=== PATIENT | female | born 1985 | race Caucasian/White ===

== ENCOUNTER 2020-01-17 22:22 | Observation (INO) | payer BC ==
[2020-01-17 23:43] LABS: Basophils # (A) 0.1 k/uL (0-0.2); Basophils % (A) 1 %; Eosinophils # (A) 0.2 k/uL (0-0.7); Eosinophils % (A) 2 %; HCT 36.1 % (34.0-46.0); Lymphocytes # (A) 2.8 k/uL (1.0-4.8); Lymphocytes % (A) 35 %; MCH 28.9 pg (25.0-35.0); MCHC 33.4 g/dL (31.0-37.0); MCV 86.6 fL (80.0-100.0); Mean Platelet Volume 11.8; Monocytes # (A) 0.5 k/uL (0-1.0); Monocytes % (A) 6 %; Neutrophils # (A) 4.3 k/uL (1.3-7.7); Neutrophils % (A) 54 %; Platelet Count 218 k/uL (150-450); RBC 4.17 m/uL (3.80-5.40); RDW 12.8 % (11.5-15.5)
[2020-01-17 23:51] LABS: ALT 18 U/L (4-34); AST 26 U/L (14-36); African American GFR (CKD) >90 (>60 ml/min/1.73 sqM); Albumin 5.1 g/dL (3.5-5.0); Alkaline Phosphatase 50 U/L (38-126); Anion Gap 12 mmol/L; Blood Urea Nitrogen 14 mg/dL (7-17); Calcium 9.9 mg/dL (8.4-10.2); Carbon Dioxide 25 mmol/L (22-30); Chloride 101 mmol/L (98-107); Glucose 98 mg/dL (74-99); Non-African American GFR(CKD) >90 (>60 ml/min/1.73 sqM); Potassium 3.8 mmol/L (3.5-5.1); Sodium 138 mmol/L (137-145); Total Bilirubin 0.5 mg/dL (0.2-1.3); Total Protein 8.4 g/dL (6.3-8.2)
[2020-01-17 23:56] LABS: Appearance,Urine Cloudy (Clear); Bacteria,Urine Many /hpf; Bilirubin,Urine Negative (Negative); Blood,Urine Large (Negative); Color,Urine Dark Red; Glucose,Urine (UA) Negative (Negative); Ketones,Urine Negative (Negative); Leukocyte Esterase,Urine Small (Negative); Nitrite,Urine Negative (Negative); PH, Urine 7.5 (5.0-8.0); Protein,Urine 3+ (Negative); RBC,Urine >182 /hpf (0-5); Specific Gravity,Urine 1.012 (1.001-1.035); Urobilinogen,Urine <2.0 mg/dL (<2.0); WBC,Urine 16 /hpf (0-5)
[2020-01-18] LABS: Prothrombin Time 10.4 sec (9.0-12.0)
[2020-01-18 00:07] LABS: HCG,Quantitative Serum 434.4 mIU/mL
--- NOTE | 2020-01-18 00:18 | ED ---
General Adult HPI - General Source: patient, family, RN notes reviewed Mode of arrival: ambulatory Limitations: no limitations <Zheng Forrester - Last Filed: 01/18/20 03:53> - History of Present Illness -: hour(s) (4) Location: pelvis (cramping), genitals (bleeding) Severity scale (1-10): 9 Consistency: constant Improves with: none Worsens with: none Associated Symptoms: diaphoresis, malaise, shortness of breath, weakness Treatments Prior to Arrival: none <Keegan Elliott - Last Filed: 01/18/20 04:25> - General Chief complaint: Vaginal Bleeding Stated complaint: Vaginal Bleeding Time Seen by Provider: 01/17/20 22:56 - History of Present Illness Initial comments: 34-year-old female presents to the emergency department for a chief complaint of vaginal bleeding. Patient states that she had an elective medical 5 weeks ago with mifepristone and misoprostol. Passed tissue shortly after. States that about 2 weeks ago she had intercourse had some light bleeding afterwards. Patient states that today she had intercourse around 8 AM and then around 3 PM she had vaginal bleeding. Patient states at first she was soaking through a pad an hour but then a couple hours ago she started to soak through 2 thin pads every hour. States she is passing clots. Denies abdominal pain. Denies lightheadedness but states she feels anxious.Patient has no other complaints at this time including shortness of breath, chest pain, abdominal pain, nausea or vomiting, headache, or visual changes. (Zheng Forrester) - Related Data Allergies Allergy/AdvReac Type Severity Reaction Status Date / Time No Known Allergies Allergy Verified 01/17/20 22:45 Review of Systems ROS Other: All systems not noted in ROS Statement are negative. <Zheng Forrestre - Last Filed: 01/18/20 03:53> ROS Other: All systems not noted in ROS Statement are negative. <Keegan Elliott - Last Filed: 01/18/20 04:25> ROS Statement: Those systems with pertinent positive or pertinent negative responses have been documented in the HPI. Past Medical History Past Medical History: No Reported History History of Any Multi-Drug Resistant Organisms: None Reported Past Surgical History: No Surgical Hx Reported Past Psychological History: No Psychological Hx Reported Smoking Status: Never smoker Past Alcohol Use History: None Reported Past Drug Use History: None Reported <UsamaZheng P - Last Filed: 01/18/20 03:53> General Exam Limitations: no limitations General appearance: alert, in no apparent distress Head exam: Present: atraumatic, normocephalic, normal inspection Eye exam: Present: normal appearance, PERRL, EOMI. Absent: scleral icterus, conjunctival injection, periorbital swelling ENT exam: Present: normal exam, mucous membranes moist Neck exam: Present: normal inspection. Absent: tenderness, meningismus, lymphadenopathy Respiratory exam: Present: normal lung sounds bilaterally. Absent: respiratory distress, wheezes, rales, rhonchi, stridor Cardiovascular Exam: Present: regular rate, normal rhythm, normal heart sounds. Absent: systolic murmur, diastolic murmur, rubs, gallop, clicks GI/Abdominal exam: Present: soft, normal bowel sounds. Absent: distended, tenderness (nontender abdomen), guarding, rebound, rigid External exam: Present: normal external exam. Absent: erythema, swelling, le sions, lacerations, ecchymosis, other Speculum exam: Present: vaginal bleeding (Moderate amount of vaginal bleeding noted. Appears to be coming from the right side of the vagina however difficult to visualize.). Absent: normal speculum exam, erythema, vaginal discharge, ce rvical discharge, foreign body Neurological exam: Present: alert, oriented X3 Skin exam: Present: warm, dry, intact, normal color. Absent: rash <Zheng Forrester P - Last Filed: 01/18/20 03:53> General appearance: alert, anxious, in distress, other (Patient becoming pale and tachycardic, diaphoretic) Head exam: Present: atraumatic, normocephalic, normal inspection Eye exam: Present: normal appearance, PERRL, EOMI. Absent: scleral icterus, conjunctival injection, periorbital swelling ENT exam: Present: normal exam, mucous membranes moist Neck exam: Present: normal inspection. Absent: tenderness, meningismus, lymphadenopathy Respiratory exam: Present: normal lung sounds bilaterally. Absent: respiratory distress, wheezes, rales, rhonchi, stridor Cardiovascular Exam: Present: normal rhythm, tachycardia, normal heart sounds. Absent: regular rate, systolic murmur, diastolic murmur, rubs, gallop, clicks GI/Abdominal exam: Present: soft, normal bowel sounds. Absent: distended, tenderness, guarding, rebound, rigid Extremities exam: Present: normal inspection, full ROM, normal capillary refill. Absent: tenderness, pedal edema, joint swelling, calf tenderness Back exam: Present: normal inspection Neurological exam: Present: alert, oriented X3, CN II-XII intact Psychiatric exam: Present: normal affect, normal mood Skin exam: Present: warm, dry, intact, normal color. Absent: rash <Keegan Elliott - Last Filed: 01/18/20 04:25> Course <Zheng Forrester - Last Filed: 01/18/20 03:53> <Keegan Elliott - Last Filed: 01/18/20 04:25> Vital Signs 01/17/20 01/18/20 01/18/20 22:37 01:25 01:42 Temperature 97.6 F Pulse Rate 120 H 40 L 86 Respiratory 20 26 H 24 Rate Blood Pressure 134/87 92/60 106/65 O2 Sat by Pulse 100 100 Oximetry 01/18/20 01/18/20 01/18/20 01:44 02:00 02:10 Temperature 97.4 F L 97.6 F 97.9 F Pulse Rate 87 83 Respiratory 18 18 Rate Blood Pressure 95/62 104/60 O2 Sat by Pulse 100 100 Oximetry - Reevaluation(s) Reevaluation #1: Dr. Elliott At bedside immediately after I saw the patient assisting with pelvic exam. (Zheng Forrester) Reevaluation #2: 01/18/20 02:03 Patient's blood pressure (Zheng Forrester) Reevaluation #3: Patient seen and evaluated here in the emergency department having persistent significant vaginal bleeding Unable to see cause her where bleeding is coming from patient concerned of some abdominal pain Patient's pelvis is packed with Kerlix to help stop bleeding Patient persistent bleeding throughout ER stay did have a significant bradycardic response to acute hemorrhage. This time she became unresponsive Patient improvement with her normal replacement and rapid IV fluid bolus decision made to transfuse patient Spoke with Dr. Chamberlain for second time to increased urgency of emergent surgery (Keegan Elliott) Medical Decision Making - Lab Data Result diagrams: 01/18/20 01:24 01/17/20 23:11 <Zheng Forrester - Last Filed: 01/18/20 03:53> - Lab Data Result diagrams: 01/18/20 01:24 01/17/20 23:11 <Keegan Elliott - Last Filed: 01/18/20 04:25> - Medical Decision Making Patient's initial vital signs: tachycardia of 120 however she was very anxious. After about 45 minutes heart rate was in the 80s and blood pressure stable. Vaginal exam was performed patient did have moderate bleeding on speculum inserted however this would stop her speculum removed. Bleeding look at it could possibly be coming from a laceration although it was difficult to visualize source. CBC CMP was obtained which was unremarkable. Hemoglobin stable at 12. HCG Quant however was found to be 434. Unknown if this is related to patient's . We spoke with MANAGER RN CASE about admitting patient given bleeding although controlled at this time. Patient stable at this time. Vagina was packed. However patient's blood pressure did drop to 92/60. Patient was given 2000 mL bolus with pressure bags. MANAGER RN CASE was called emergently again and OR was called in. Blood work was repeated and there was a delta of almost 4 points. Transfusion was given. Dr. Nicholas at bedside evaluating patient. Patient was taken to the OR. (Zheng Forrester) 34 female DF for evaluation of acute vaginal bleeding. Patient significant vaginal bleeding, in extremis from hemorrhagic shock. Patient taken to the operating room and transfused with blood pressure support (Keegan Elliott) - Lab Data Lab Results 01/17/20 01/17/20 01/17/20 Range/Units 23:00 23:02 23:11 WBC 8.0 (3.8-10.6) k/uL RBC 4.17 (3.80-5.40) m/uL Hgb 12.0 (11.4-16.0) gm/dL Hct 36.1 (34.0-46.0) % MCV 86.6 (80.0-100.0) fL MCH 28.9 (25.0-35.0) pg MCHC 33.4 (31.0-37.0) g/dL RDW 12.8 (11.5-15.5) % Plt Count 218 (150-450) k/uL Neutrophils % 54 % Lymphocytes % 35 % Monocytes % 6 % Eosinophils % 2 % Basophils % 1 % Neutrophils # 4.3 (1.3-7.7) k/uL Lymphocytes # 2.8 (1.0-4.8) k/uL Monocytes # 0.5 (0-1.0) k/uL Eosinophils # 0.2 (0-0.7) k/uL Basophils # 0.1 (0-0.2) k/uL Manual Slide Review Performed Large Platelets Present PT (9.0-12.0) sec INR (<1.2) APTT (22.0-30.0) sec VBG pH (7.31-7.41) VBG pCO2 (37-51) mmHg VBG HCO3 (24-28) mmol/L Sodium (137-145) mmol/L Potassium (3.5-5.1) mmol/L Chloride (98-107) mmol/L Carbon Dioxide (22-30) mmol/L Anion Gap mmol/L BUN (7-17) mg/dL Creatinine (0.52-1.04) mg/dL Est GFR (CKD-EPI)AfAm (>60 ml/min/1.73 sqM) Est GFR (CKD-EPI)NonAf (>60 ml/min/1.73 sqM) Glucose (74-99) mg/dL POC Glucose (mg/dL) (75-99) mg/dL POC Glu Instrumentation Controls Engineer ID Calcium (8.4-10.2) mg/dL Total Bilirubin (0.2-1.3) mg/dL AST (14-36) U/L ALT (4-34) U/L Alkaline Phosphatase (38-126) U/L Total Protein (6.3-8.2) g/dL Albumin (3.5-5.0) g/dL HCG, Quant mIU/mL Urine Color Urine Appearance (Clear) Urine pH (5.0-8.0) Ur Specific Reard[place] (1.001-1.035) Urine Protein (Negative) Urine Glucose (UA) (Negative) Urine Ketones (Negative) Urine Blood (Negative) Urine Nitrite (Negative) Urine Bilirubin (Negative) Urine Urobilinogen (<2.0) mg/dL Ur Leukocyte Esterase (Negative) Urine RBC (0-5) /hpf Urine WBC (0-5) /hpf Urine WBC Clumps (None) /hpf Urine Bacteria (None) /hpf Blood Type A Positive Blood Type Confirm A Positive Blood Type Recheck No Previous Record Bld Type Recheck Status CABO Indicated Antibody Screen NEGATIVE Crossmatch See Detail Spec Expiration Date 01/20/2020 - 231001/17/20 01/17/20 01/17/20 Range/Units 23:11 23:11 23:11 WBC (3.8-10.6) k/uL RBC (3.80-5.40) m/uL Hgb (11.4-16.0) gm/dL Hct (34.0-46.0) % MCV (80.0-100.0) fL MCH (25.0-35.0) pg MCHC (31.0-37.0) g/dL RDW (11.5-15.5) % Plt Count (150-450) k/uL Neutrophils % % Lymphocytes % % Monocytes % % Eosinophils % % Basophils % % Neutrophils # (1.3-7.7) k/uL Lymphocytes # (1.0-4.8) k/uL Monocytes # (0-1.0) k/uL Eosinophils # (0-0.7) k/uL Basophils # (0-0.2) k/uL Manual Slide Review Large Platelets PT 10.4 (9.0-12.0) sec INR 1.0 (<1.2) APTT 23.0 (22.0-30.0) sec VBG pH (7.31-7.41) VBG pCO2 (37-51) mmHg VBG HCO3 (24-28) mmol/L Sodium 138 (137-145) mmol/L Potassium 3.8 (3.5-5.1) mmol/L Chloride 101 (98-107) mmol/L Carbon Dioxide 25 (22-30) mmol/L Anion Gap 12 mmol/L BUN 14 (7-17) mg/dL Creatinine 0.67 (0.52-1.04) mg/dL Est GFR (CKD-EPI)AfAm >90 (>60 ml/min/1.73 sqM) Est GFR (CKD-EPI)NonAf >90 (>60 ml/min/1.73 sqM) Glucose 98 (74-99) mg/dL POC Glucose (mg/dL) (75-99) mg/dL POC Glu Instrumentation Controls Engineer ID Calcium 9.9 (8.4-10.2) mg/dL Total Bilirubin 0.5 (0.2-1.3) mg/dL AST 26 (14-36) U/L ALT 18 (4-34) U/L Alkaline Phosphatase 50 (38-126) U/L Total Protein 8.4 H (6.3-8.2) g/dL Albumin 5.1 H (3.5-5.0) g/dL HCG, Quant 434.4 mIU/mL Urine Color Dark Red Urine Appearance Cloudy H (Clear) Urine pH 7.5 (5.0-8.0) Ur Specific Reardan 1.012 (1.001-1.035) Urine Protein 3+ H (Negative) Urine Glucose (UA) Negative (Negative) Urine Ketones Negative (Negative) Urine Blood Large H (Negative) Urine Nitrite Negative (Negative) Urine Bilirubin Negative (Negative) Urine Urobilinogen <2.0 (<2.0) mg/dL Ur Leukocyte Esterase Small H (Negative) Urine RBC >182 H (0-5) /hpf Urine WBC 16 H (0-5) /hpf Urine WBC Clumps Many H (None) /hpf Urine Bacteria Many H (None) /hpf Blood Type Blood Type Confirm Blood Type Recheck Bld Type Recheck Status Antibody Screen Crossmatch Spec Expiration Date 01/18/20 01/18/20 01/18/20 Range/Units 01:23 01:24 01:24 WBC 9.8 (3.8-10.6) k/uL RBC 2.99 L (3.80-5.40) m/uL Hgb 8.3 L D (11.4-16.0) gm/dL Hct 25.4 L (34.0-46.0) % MCV 85.0 (80.0-100.0) fL MCH 27.9 (25.0-35.0) pg MCHC 32.8 (31.0-37.0) g/dL RDW 13.0 (11.5-15.5) % Plt Count 125 L (150-450) k/uL Neutrophils % 59 % Lymphocytes % 33 % Monocytes % 5 % Eosinophils % 1 % Basophils % 0 % Neutrophils # 5.7 (1.3-7.7) k/uL Lymphocytes # 3.2 (1.0-4.8) k/uL Monocytes # 0.5 (0-1.0) k/uL Eosinophils # 0.1 (0-0.7) k/uL Basophils # 0.0 (0-0.2) k/uL Manual Slide Review Large Platelets PT (9.0-12.0) sec INR (<1.2) APTT (22.0-30.0) sec VBG pH 7.44 H (7.31-7.41) VBG pCO2 30 L (37-51) mmHg VBG HCO3 20 L (24-28) mmol/L Sodium (137-145) mmol/L Potassium (3.5-5.1) mmol/L Chloride (98-107) mmol/L Carbon Dioxide (22-30) mmol/L Anion Gap mmol/L BUN (7-17) mg/dL Creatinine (0.52-1.04) mg/dL Est GFR (CKD-EPI)AfAm (>60 ml/min/1.73 sqM) Est GFR (CKD-EPI)NonAf (>60 ml/min/1.73 sqM) Glucose (74-99) mg/dL POC Glucose (mg/dL) 117 H (75-99) mg/dL POC Glu Instrumentation Controls Engineer ID Fetterly, Juliane Calcium (8.4-10.2) mg/dL Total Bilirubin (0.2-1.3) mg/dL AST (14-36) U/L ALT (4-34) U/L Alkaline Phosphatase (38-126) U/L Total Protein (6.3-8.2) g/dL Albumin (3.5-5.0) g/dL HCG, Quant mIU/mL Urine Color Urine Appearance (Clear) Urine pH (5.0-8.0) Ur Specific Reard[place] (1.001-1.035) Urine Protein (Negative) Urine Glucose (UA) (Negative) Urine Ketones (Negative) Urine Blood (Negative) Urine Nitrite (Negative) Urine Bilirubin (Negative) Urine Urobilinogen (<2.0) mg/dL Ur Leukocyte Esterase (Negative) Urine RBC (0-5) /hpf Urine WBC (0-5) /hpf Urine WBC Clumps (None) /hpf Urine Bacteria (None) /hpf Blood Type Blood Type Confirm Blood Type Recheck Bld Type Recheck Status Antibody Screen Crossmatch Spec Expiration Date Critical Care Time Critical Care Time: Yes <Zheng Forrester - Last Filed: 01/18/20 03:53> Critical Care Time: Yes Total Critical Care Time: 31 <Keegan Elliott - Last Filed: 01/18/20 04:25> Critical Care Time: 33 minutes of critical care time was utilized for management of this patient. Multiple evaluations were performed. Vaginal packing performed. Correcting of critical vitals. Consultation with surgeon. (Zheng Forrester) Disposition Time of Disposition: 03:50 <Zheng Forrester - Last Filed: 01/18/20 03:53> Is patient prescribed a controlled substance at d/c from ED?: No <Keegan Elliott - Last Filed: 01/18/20 04:25> Clinical Impression: Vaginal bleeding, Hemorrhagic shock, Anemia, Incomplete Disposition: ADMITTED IP TO THIS HOSP Condition: Critical
[2020-01-18 00:24] LABS: Large Platelets Present
--- NOTE | 2020-01-18 00:41 | US ---
EXAMINATION TYPE: US transvaginal DATE OF EXAM: 01/18/2020 COMPARISON: NONE CLINICAL HISTORY: pain. Patient took medication 5 weeks ago, heavy vaginal bleeding with maya ts today TECHNIQUE: Transvaginal (TV). Date of LMP: unknown EXAM MEASUREMENTS: Uterus: 8.6 x 4.6 x 4.9 cm Right Ovary: 2.3 x 1.3 x 1.6 cm Left Ovary: 3.3 x 2.0 x 2.3 cm 1. Uterus: Anteverted heterogeneous with increased vascularity body/OUSMANE 2. Endometrium: unable to visualize clearly due to heterogeneous myometrium 3. Right Ovary: appears wnl as visualized 4. Left Ovary: complex cystic area = 2.7 x 2.2 x 2.3cm Spectral, color and waveform doppler imaging shows good arterial and venous flow within the ovaries ; there is no evidence for ovarian torsion. 5. Bilateral Adnexa: appears wnl 6. Posterior cul-de-sac: wnl IMPRESSION: Normal uterus and endometrium. No evidence of ovarian torsion. Empty uterus. Complex cyst on the left ovary.
[2020-01-18 01:28] LABS: Glucose,Whole Blood 117 mg/dL (75-99)
[2020-01-18] MEDS ORDERED: SODIUM CHLORIDE 0.9% 2,000 ML IV ONE (01:30)
[2020-01-18 01:32] LABS: VBG PH 7.44 (7.31-7.41)
[2020-01-18 01:37] LABS: Basophils % (A) 0 %; Eosinophils # (A) 0.1 k/uL (0-0.7); Eosinophils % (A) 1 %; HCT 25.4 % (34.0-46.0); Lymphocytes # (A) 3.2 k/uL (1.0-4.8); Lymphocytes % (A) 33 %; MCH 27.9 pg (25.0-35.0); MCHC 32.8 g/dL (31.0-37.0); Mean Platelet Volume 12.1; Monocytes # (A) 0.5 k/uL (0-1.0); Monocytes % (A) 5 %; Neutrophils # (A) 5.7 k/uL (1.3-7.7); Neutrophils % (A) 59 %; Platelet Count 125 k/uL (150-450); RBC 2.99 m/uL (3.80-5.40); WBC 9.8 k/uL (3.8-10.6)
[2020-01-18 01:38] LABS: HGB 8.3 gm/dL (11.4-16.0)
[2020-01-18] MEDS ORDERED: NALOXONE 0.4 MG/ML 1 ML VIAL IV PRN (02:35)
[2020-01-18] MEDS ORDERED: METHYLERGONOVINE 0.2 MG/ML 1 ML AMP ONE (02:38)
[2020-01-18] MEDS ORDERED: PROPOFOL 10 MG/ML 20 ML VIAL IV ONE (02:38)
[2020-01-18] MEDS ORDERED: MIDAZOLAM 2 MG/2 ML VIAL ONE (02:38)
[2020-01-18] MEDS ORDERED: KETOROLAC 30 MG/ML 1 ML VIAL ONE (02:38)
[2020-01-18] MEDS ORDERED: ONDANSETRON 4 MG/2 ML VIAL ONE (02:38)
[2020-01-18] MEDS ORDERED: fentaNYL (PF) 50 MCG/ML 2 ML AMP ONE (02:38)
[2020-01-18] MEDS ORDERED: SUCCINYLCHOLINE CHLORIDE 100 MG/5 ML SYR IV ONE (02:38)
[2020-01-18] MEDS ORDERED: IV FLUID CONTINUATION 1,000 ML IV ONE (02:41)
[2020-01-18] MEDS ORDERED: SODIUM CHLORIDE 0.9% 100 ML with ceFAZolin 2,000 MG IV ONE ×2 (02:54)
[2020-01-18] MEDS ORDERED: KETOROLAC 30 MG/ML 1 ML VIAL IVP PRN (03:17)
[2020-01-18] MEDS ORDERED: diphenhydrAMINE 50 MG/ML 1 ML VIAL IVP PRN (03:17)
[2020-01-18] MEDS ORDERED: METOCLOPRAMIDE 5 MG/ML 2 ML VIAL IVP PRN (03:17)
[2020-01-18] MEDS ORDERED: IBUPROFEN 600 MG TAB PO PRN (03:17)
--- NOTE | 2020-01-18 03:17 | P.OP ---
Date of Procedure: 01/18/20 Preoperative Diagnosis: Brisk vaginal bleeding, positive beta hCG, now hemodynamically unstable, anemia Postoperative Diagnosis: Retained products of conception Procedure(s) Performed: Examination under anesthesia, suction dilatation and curettage of the uterine cavity Anesthesia: DESI Surgeon: Tatum Nicholas Estimated Blood Loss (ml): 200 IV fluids (ml): 200 Urine output (ml): 400 Pathology: other (Intrauterine contents) Condition: stable Disposition: PACU Description of Procedure: Patient is brought to the operating suite where a general anesthetic is administered without difficulty. 2 g of Ancef are given prophylactically. The appropriate timeout was performed to assure proper patient and procedural identification. The perineal body is prepped and draped in the usual sterile fashion after removing a large Kerlix packing that was placed intravaginally by the emergency room. The packing is saturated with dark blood clots noted. Examination under anesthesia reveals a 6 week size uterus in the anteverted position, mobile, smooth. Adnexa negative bilaterally. Bladder is drained for approximately 400 mL of clear yellow urine. Weighted speculum was placed into the vagina. The anterior lip of the cervix is grasped with an Allis clamp. There is a large amount of tissue and clot sitting at the external os that is gently removed with a ring forcep and sent to pathology. The uterus then sounds to a depth of 8 cm in the anteverted position. Cervix is fully dilated. A #8 curved suction curette is placed to the dome of the fundus and the uterine cavity is suctioned curettage for a small residual amount of blood and tissue. A medium sharp curette is then used to assure that the "cry of the uterus" is appreciated and no residual tissue is remaining. The cervix is clean and dry at this time. Methergine was given for mild uterine atony. All sponge needle and instrument counts are correct. Patient is brought back to recovery room in good condition with stable vital signs including blood pressure 99/59, pulse 94, 100% O2 saturation. Patient will be monitored postoperatively and likely sent home later this morning. Blood type A+.
[2020-01-18] MEDS ORDERED: SODIUM CHLORIDE 0.9% 1,000 ML IV ONE (03:39)
[2020-01-18] MEDS ORDERED: diphenhydrAMINE 50 MG/ML 1 ML VIAL IVP ONE (03:47)
[2020-01-18 06:00] VITALS: RESP 16
[2020-01-18 07:19] VITALS: BP 112/55; PULSE 82; TEMP 98.7
--- NOTE | 2020-01-18 08:57 | HP ---
HISTORY AND PHYSICAL This is a 34-year-old female, 3, para 2, 0, 1, 2, status post termination of at 7 and 4/7 weeks on 12/22/19 via vaginal tablets. Patient states she had 7 days of heavy bleeding followed by 7 days of light bleeding at that time. She presents to the ER with brisk vaginal bleeding. She and her had intimacy at 8:00 in the morning, no pain or bleeding afterwards. Starting at 3:00 pm vaginal bleeding occurred, heavy with blood clots. She became lightheaded and dizzy. She had lower abdominal and back pain that improved slightly after a bowel movement. In the emergency room original hemoglobin was 12, repeat 8.3. Patient became orthostatic and dropped her pulse into the 40s. At this point, her vital signs are stable. PAST MEDICAL HISTORY: Essentially negative. PAST SURGICAL HISTORY: Negative. CURRENT MEDICATIONS: None. ALLERGIES: None known. 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 She denies alcohol or drug use. FAMILY HISTORY: A paternal aunt has a history of aneurysm, paternal uncle with hypertension. OBSTETRIC HISTORY: Vaginal delivery, 2009 female infant, 6 pounds 9 ounces, unremarkable. Vaginal delivery 2013, male infant, 7 pounds, unremarkable. EXAM: Patient is 5 foot 3 inches, she is 116 pounds. Vital signs at this time are stable. The general physical exam is within normal limits. Dentition is good. No obvious thyromegaly. Chest is clear to auscultation in all merrill anteriorly and posteriorly. Cardiac exam reveals regular rate and rhythm with no murmur, click, or rub. Abdomen is soft, tender suprapubically. Pelvic examination is not performed at the bedside as there is brisk vaginal bleeding. Ultrasound reveals a normal-size uterus, heterogeneous texture. Endometrium is not well delineated sonographically. Adnexa appear negative. Beta HCG is 430. Hemoglobin 8.3. First unit of packed red blood cells is infusing. IMPRESSION: Brisk vaginal bleeding, orthostatic with 4 g drop in hemoglobin in the emergency room. Recent termination of and a residual beta HCG of 400. Patient has had unprotected intercourse since the procedure. PLAN: We will proceed with examination under anesthesia. Repair of any vaginal or cervical laceration. Possible suction D and C. Surgery if indicated. I have reviewed with the patient and her who is an x-ray budget technician the risks, benefits, and alternatives of our plan. We have reviewed the risk of uterine perforation, or damage to the reproductive organs. All questions answered. MMODL / IJN: [id number] /
== END 2020-01-18 09:22 | disposition home or self-care (01) ==
LOC: EC 22:22 → 4FBP 01-18 02:42
PROVIDERS: ADMIT Obstetrics & Gynecology; ATTEND Obstetrics & Gynecology
DX: O07.1 Delayed or excessive hemorrhage following failed attempted termination of pregnancy (principal); O03.31 Shock following incomplete spontaneous abortion; O07.3 Failed attempted termination of pregnancy with other and unspecified complications; Z03.818 Encounter for observation for suspected exposure to other biological agents ruled out; Z82.49 Family history of ischemic heart disease and other diseases of the circulatory system
CPT/HCPCS: 59812; 36430; 99291; 36415 ×2; 86900; 86901; 88305; 80053; 82803; 85025 ×2; 85610; 85730; 86850; 86920; 81001; 84702; 87086; 87635; 93975; 76830; G0378; P9016; J2250; J1200; J2210; J2405; J0690; J3010; J1885; J0330; J2704

== ENCOUNTER 2022-02-13 16:32 | Emergency (ER) | payer BC ==
[2022-02-13 17:45] VITALS: BP 99/60; PULSE 65; RESP 16; TEMP 98.2
[2022-02-13 17:58] LABS: Basophils # (A) 0.1 k/uL (0-0.2); Basophils % (A) 1 %; Eosinophils % (A) 1 %; HCT 35.1 % (34.0-46.0); HGB 11.8 gm/dL (11.4-16.0); Lymphocytes # (A) 1.2 k/uL (1.0-4.8); Lymphocytes % (A) 14 %; MCH 29.6 pg (25.0-35.0); MCHC 33.6 g/dL (31.0-37.0); Mean Platelet Volume 11.3; Monocytes # (A) 0.2 k/uL (0-1.0); Monocytes % (A) 3 %; Neutrophils # (A) 6.6 k/uL (1.3-7.7); Neutrophils % (A) 81 %; Platelet Count 166 k/uL (150-450); RBC 3.99 m/uL (3.80-5.40); RDW 12.9 % (11.5-15.5); WBC 8.2 k/uL (3.8-10.6)
[2022-02-13 18:07] LABS: ALT 25 U/L (4-34); AST 33 U/L (14-36); African American GFR (CKD) >90 (>60 ml/min/1.73 sqM); Albumin 4.4 g/dL (3.5-5.0); Alkaline Phosphatase 38 U/L (38-126); Anion Gap 10 mmol/L; Blood Urea Nitrogen 13 mg/dL (7-17); Calcium 9.1 mg/dL (8.4-10.2); Carbon Dioxide 20 mmol/L (22-30); Chloride 109 mmol/L (98-107); Glucose 93 mg/dL (74-99); Non-African American GFR(CKD) >90 (>60 ml/min/1.73 sqM); Potassium 3.9 mmol/L (3.5-5.1); Sodium 139 mmol/L (137-145); Total Bilirubin 0.3 mg/dL (0.2-1.3); Total Protein 7.3 g/dL (6.3-8.2)
[2022-02-13 18:15] LABS: Prothrombin Time 10.7 sec (9.0-12.0)
[2022-02-13 18:16] LABS: Large Platelets Present; RBC Morphology Normal
[2022-02-13 18:17] LABS: Partial Thromboplastin Time 18.5 sec (22.0-30.0)
--- NOTE | 2022-02-13 18:17 | XR ---
EXAMINATION TYPE: XR foot complete RT DATE OF EXAM: 02/13/2022 COMPARISON: NONE HISTORY: Pain TECHNIQUE: 3 views FINDINGS: Metatarsals are intact. The toes appear intact. I see no fracture nor dislocation. IMPRESSION: Negative right foot exam. No fracture.
--- NOTE | 2022-02-13 18:18 | XR ---
EXAMINATION TYPE: XR chest 2V DATE OF EXAM: 02/13/2022 COMPARISON: NONE HISTORY: Syncope TECHNIQUE: 2 view FINDINGS: Heart and mediastinum are normal. Lungs are clear. Diaphragm is normal. Bony thorax appears normal. IMPRESSION: Normal chest.
--- NOTE | 2022-02-13 18:19 | XR ---
EXAMINATION TYPE: XR ankle complete RT DATE OF EXAM: 02/13/2022 COMPARISON: NONE HISTORY: TECHNIQUE: 3 views FINDINGS: Ankle mortise is anatomic. I see no fracture nor dislocation. Joint spaces are normal. IMPRESSION: Negative right ankle exam. No fracture.
== END 2022-02-13 20:33 | disposition left against medical advice (07) ==
LOC: EC 16:32
DX: Z53.21 Procedure and treatment not carried out due to patient leaving prior to being seen by health care provider (principal)
CPT/HCPCS: 36415; 71046; 80053; 84484; 85025; 85610; 85730; 93005; 99499